=== PATIENT | male | born 1965 | race Caucasian/White ===

== ENCOUNTER 2023-02-10 12:52 | Emergency (ER) | payer SELFPAY ==
[2023-02-10] VITALS (8 sets, daily range): BP systolic 120–130; BP diastolic 71–78; PULSE 76–86; RESP 18–24; TEMP 36.7–36.9; O2SAT 97–100
--- NOTE | ~2023-02-10 | CT_ITS ---
EXAMINATION: CTA chest PE protocol DATE: 02/10/2023 16:54 INDICATION: PE TECHNIQUE: Computed tomography angiography (CTA) of the chest was performed with 100 mL Omnipaque-350 intravenous contrast timed to evaluate the pulmonary arteries. Coronal maximum intensity projection 3D-reconstructions were created by the technologist. The dose-length product (DLP) was 459.67 mGy-cm. Automated exposure control and iterative reconstruction technique were employed. COMPARISON: X-ray chest, same date. FINDINGS: Lung parenchyma and airways: Centrilobular emphysematous change. Left basilar scar. Granulomatous kiana cifications. Pleura: Minimal pleural thickening and pleural calcification at the left lung base, as can be seen wi th asbestos related pleural disease or old trauma. Thoracic inlet, axillae and chest wall: Unremarkable. Thoracic aorta: Normal. Mediastinum: Normal. Heart and pericardium: Normal. Coronary artery calcifications: Absent. Upper abdomen: No significant finding. Bones: No acute osseous finding. Pulmonary arteries: Study quality: Adequate. No pulmonary emboli detected. IMPRESSION: No CT evidence of acute pulmonary embolus. No acute thoracic process detected. Reviewed, dictated and finalized at location K.
--- NOTE | ~2023-02-10 | XR_ITS ---
EXAMINATION: XR chest 2V Exam Date/Time: 02/10/2023 15:15 CDT HISTORY: cough, short of breath x 1 week Comparison: None. RESULT: Lines, tubes, and devices: None. Lungs and pleura: Hemidiaphragm flattening. Increased AP diameter. Calcified pleural plaque. Cardiomediastinal silhouette: Stable. Other: No acute osseous or upper abdominal finding. IMPRESSION: Mild emphysematous change. Calcified pleural plaque as can be seen with asbestos related pleural dise ase. Reviewed, dictated and finalized at location K. IMPRESSION: Mild emphysematous change. Calcified pleural plaque as can be seen with asbesto s related pleural disease.
--- NOTE | 2023-02-10 13:10 | ECG_ITS ---
Measurements Intervals [place] Rate: 73 P: 82 [place]: 150 QRS: 71 QRSD: 87 T: 57 QT: 382 QTc: 423 Interpretive Statements SINUS RHYTHM NORMAL ECG NO PREVIOUS ECG AVAILABLE FOR COMPARISON Electronically Signed On 02-10-2023 13:28:38 CDT by Daniel Ray D.O.
--- NOTE | 2023-02-10 15:13 | ED.SOB ---
HPI - SOB/Dyspnea General Chief Complaint: Shortness of Breath/Dyspnea Stated Complaint: cough/sob Time Seen by Provider: 02/10/23 15:08 History of Present Illness HPI Narrative: Patient is a 57-year-old male here with history of COPD here with cough and shortness of breath. Patient states that at the end of last month he was diagnosed with COVID. He states at that time he had loss of taste and smell as well as a cough and shortness of breath. This seemed to resolve after about 5 days. He notes that it began again this week. He notes myalgias, headache, cough which is productive in nature of yellow green sputum. He notes he once again has had loss of sense of taste and smell as well as a decreased appetite. He denies any fever chills. He does note that he has been using his inhaler at home with mild improvement of his shortness of breath. No prior history of PE or DVT, no recent travel, no recent surgeries. he has had some associated chest pain which is throughout the entire chest and nonradiating. Related Data Allergies Allergy/AdvReac Type Severity Reaction Status Date / Time No Known Allergies Allergy Verified 02/10/23 15:16 Review of Systems Review of Systems: CONSTITUTIONAL: Denies fever, chills, or sweats. EYES: Denies visual changes, redness, or discharge. ENT: Denies rhinorrhea, congestion, sore throat, or otalgia. CARDIOVASCULAR: chest pain, no palpitations, or edema. RESPIRATORY: cough, dyspnea. GASTROINTESTINAL: Denies abdominal pain, nausea, vomiting, or diarrhea. GENITOURINARY: Denies dysuria or hematuria. SKIN: Denies rash or itching. MUSCULOSKELETAL: Myalgias, Denies back pain, joint pain NEUROLOGIC: Denies headache, numbness, or weakness. Exam Narrative: GENERAL: Well-appearing, well-nourished, and in no acute distress. HEAD: Normocephalic, atraumatic. EYES: PERRLA and EOMI. ENT: Nares clear. Mucous membranes moist. NECK: Supple. CHEST: Diffuse wheeze bilaterally. No respiratory distress. HEART: Regular rate and rhythm. Normal peripheral pulses. ABDOMEN: Soft, nontender, nondistended. EXTREMITIES: Normal range of motion. No edema. SKIN: Warm, dry, no rash. NEURO: No focal deficits. Alert and oriented x3. PSYCH: Normal mood and affect. Course Course Emergency Course: Chart review performed, patient here with shortness of breath and cough. Triage vitals within normal limits. No prior visits here in our system. Patient seen evaluated, here with what sounds like recurrent viral syndrome symptoms. He did recently have COVID, will retest. Cardiac workup ordered. Triage workup did perform a chest x-ray which did now show a large infiltrate. Given recent COVID and shortness of breath will do a PE study because he is at higher risk for coagulopathy. Lab work and imaging reviewed, CBC grossly unremarkable, CMP unremarkable, normal BNP, normal troponin pain has been present for a several days constantly, do not believe repeat troponin is indicated. COVID, influenza, RSV all negative. Patient provided and instructed on how to use a spacer with his inhaler. He notes he has an inhaler at home. Will give him dose of prednisone here and start him on a prednisone course as well as an Augmentin course for bacterial COPD exacerbation. The results of pertinent diagnostic studies and exam findings were discussed. The patient?s provisional diagnosis and plan of care were discussed with the patient and present family. The patient and/or present family expressed understanding of the diagnosis and plan. The nurse was instructed to provide written instructions and appropriate follow-up information. The patient understands their need and responsibility to obtain additional follow-up as instructed. The risks of medications administered and prescribed were discussed with the patient and family present. Vital Signs Vital signs: Vital Signs Temperature 98.5 F 02/10/23 13:05 Pulse Rate
[2023-02-10 16:09] LABS: Basophils Absolute Auto 0.1 K/mm3 (0.0-0.1); Basophils Percent Auto 0.8 % (0.2-1.2); Eosinophils Absolute Auto 0.1 K/mm3 (0-0.3); Eosinophils Percent Auto 1.4 % (0-4.4); Hematocrit 41.3 % (42.0-52.0); Hemoglobin 13.6 g/dL (14.0-18.0); Immature Granulocyte Absolute 0.02 K/mm3 (0.00-0.031); Immature Granulocyte Percent A 0.2 % (0-0.5); Lymphocytes Absolute Auto 2.63 K/mm3 (0.9-3.2); Mean Corpuscular HGB Conc 32.9 g/dl (32-36); Mean Corpuscular Hemoglobin 30.6 pg (26-34); Mean Platelet Volume 9.6 fl (7.4-10.4); Monocytes Absolute Auto 0.7 K/mm3 (0.1-0.6); Monocytes Percent Auto 7.6 % (2.6-8.5); Neutrophils Absolute Auto 5.5 K/mm3 (1.3-6.7); Platelet Count Result 208 k/mm3 (150-375); Red Blood Count 4.44 M/mm3 (4.6-6.20); Red Cell Distribution Width 12.8 % (11.5-14.5); White Blood Count 9.1 K/mm3 (4.5-10.0)
[2023-02-10] MEDS: IPRATROPIUM BR 0.02% INH SOLN 0.5 MG/2.5 ML VIAL INHALATION (16:16)
[2023-02-10] MEDS: ALBUTEROL SULFATE NEB 2.5 MG/3 ML INH INHALATION (16:16)
[2023-02-10] MEDS: AMOXICILLIN/CLAVULANATE K 875-125 MG TAB 1 TABLET PO (16:19)
[2023-02-10 16:28] LABS: Alanine Aminotransferase 19 U/L (6-50); Albumin Level 4.1 g/dL (3.5-5.1); Alkaline Phosphatase 67 U/L (38-126); Anion Gap 5 mmol/L (8-16); Aspartate Amino Transferase 30 U/L (17-59); Bilirubin,Total 0.4 mg/dL (0.2-1.3); Blood Urea Nitrogen 10 mg/dL (9-20); Calcium 8.8 mg/dL (8.4-10.2); Carbon Dioxide 27 mmol/L (22-30); Chloride 104 mmol/L (98-107); Estimated CRCL calculation 76 ml/min; Estimated Glomerular Filt Rate > 60; Glucose 125 mg/dL (65-110); Potassium 3.7 mmol/L (3.4-5.0); Sodium 136 mmol/L (137-145)
[2023-02-10 16:38] LABS: NT Pro B Type Natriuretic Pept 50 pg/mL (19.9-100); Troponin I < 0.012 ng/mL (0.000-0.034)
[2023-02-10 17:13] LABS: Influenza A QL RT-PCR Negative (Negative); Influenza B QL RT-PCR Negative (Negative); RSV RNA, RT-PCR Negative (Negative); SARS-CoV-2 RNA PCR Negative (Negative)
[2023-02-10] MEDS: predniSONE 20 MG TABLET 40 MG PO (18:38)
== END 2023-02-10 18:45 | disposition home or self-care (01) ==
PROVIDERS: Emergency Provider Student in an Organized Health Care Education/Training Program
DX: J44.9 Chronic obstructive pulmonary disease, unspecified (principal)
CPT/HCPCS: 36415; 71046; 71275; 80053; 83880; 84484; 85025; 87637; 93005; 94640; 99284; A9270; J7512; Q9967

== ENCOUNTER 2024-02-19 11:33 | Emergency (ER) | payer SELFPAY ==
[2024-02-19] VITALS (11 sets, daily range): BP systolic 120–154; BP diastolic 71–88; PULSE 66–94; RESP 14–24; TEMP 36.4; O2SAT 98–100
--- NOTE | ~2024-02-19 | XR_ITS ---
Clinical Indication: Chest pain PA and lateral views of the chest: Comparison: 02/10/2023 Findings: The lungs are clear, without evidence of focal consolidation or pleural effusion. COPD daniella maribell noted. Cardiomediastinal silhouette is within normal limits. Bones and soft tissues are unremarka ble. Impression: Clear lungs. COPD. Reviewed, dictated and finalized at location . Impression: Clear lungs. COPD.
--- NOTE | 2024-02-19 11:34 | ECG_ITS ---
Test Date: 2024-02-19 11:39:40 Measurements Intervals [place] Rate: 75 P: -19 [place]: 144 QRS: -11 QRSD: 85 T: 9 QT: 383 QTc: 430 Interpretive Statements SINUS RHYTHM MODERATE VOLTAGE CRITERIA FOR LVH, CONSIDER NORMAL VARIANT [MEETS CRITERIA IN ONE OF: R(aVL), S(V1), R(V5), R(V5/V6)+S(V1)] NONSPECIFIC T-WAVE ABNORMALITY ABNORMAL ECG No previous ECG available for comparison Electronically Signed On 02-19-2024 14:06:37 CDT by Cristian Lundberg M.D.
[2024-02-19 12:00] LABS: Basophils Absolute Auto 0.1 K/mm3 (0.0-0.1); Basophils Percent Auto 0.7 % (0.2-1.2); Eosinophils Absolute Auto 0.1 K/mm3 (0-0.3); Eosinophils Percent Auto 1.4 % (0-4.4); Hematocrit 44.1 % (42.0-52.0); Hemoglobin 14.9 g/dL (14.0-18.0); Immature Granulocyte Absolute 0.02 K/mm3 (0.00-0.031); Immature Granulocyte Percent A 0.3 % (0-0.5); Lymphocytes Absolute Auto 2.22 K/mm3 (0.9-3.2); Lymphocytes Percent Auto 30.6 % (18.3-44.2); Mean Corpuscular HGB Conc 33.8 g/dl (32-36); Mean Corpuscular Hemoglobin 31.6 pg (26-34); Mean Corpuscular Volume 93.4 fl (80-100); Mean Platelet Volume 9.4 fl (7.4-10.4); Monocytes Absolute Auto 0.6 K/mm3 (0.1-0.6); Monocytes Percent Auto 7.9 % (2.6-8.5); Neutrophils Absolute Auto 4.3 K/mm3 (1.3-6.7); Neutrophils Percent Auto 59.1 % (45.5-73.1); Platelet Count Result 240 k/mm3 (150-375); Red Blood Count 4.72 M/mm3 (4.6-6.20); Red Cell Distribution Width 13.4 % (11.5-14.5); White Blood Count 7.3 K/mm3 (4.5-10.0)
[2024-02-19] MEDS: ASPIRIN 81 MG CHEWABLE TABLET 324 MG PO (12:00)
[2024-02-19 12:09] LABS: Alanine Aminotransferase 26 U/L (6-50); Albumin Level 4.7 g/dL (3.5-5.1); Alkaline Phosphatase 74 U/L (38-126); Anion Gap 9 mmol/L (4-12); Aspartate Amino Transferase 34 U/L (17-59); Bilirubin,Total 0.5 mg/dL (0.2-1.3); Blood Urea Nitrogen 15 mg/dL (9-20); Calcium 9.1 mg/dL (8.4-10.2); Carbon Dioxide 25 mmol/L (22-30); Chloride 103 mmol/L (98-107); Estimated CRCL calculation 83 ml/min; Estimated Glomerular Filt Rate > 60; Glucose 92 mg/dL (65-110); Lipase 103 U/L (23-300); Potassium 3.9 mmol/L (3.4-5.0); Sodium 137 mmol/L (137-145)
[2024-02-19 12:11] LABS: Partial Thromboplastin Time 28.3 Seconds (22.3-36.8); Prothrombin Time 13.8 Seconds (11.1-14.7)
[2024-02-19 12:21] LABS: Troponin I < 0.012 ng/mL (0.000-0.034)
[2024-02-19] MEDS: dexAMETHasone SOD PHOS INJ 10 MG/ML 1 ML VIAL IV PUSH (14:13)
--- NOTE | 2024-02-19 14:13 | ECG_ITS ---
Test Date: 2024-02-19 14:46:43 Measurements Intervals [place] Rate: 60 P: 76 [place]: 139 QRS: 68 QRSD: 86 T: -2 QT: 416 QTc: 417 Interpretive Statements SINUS RHYTHM NONSPECIFIC T-WAVE ABNORMALITY Compared to ECG 02/19/2024 11:39:40 No significant changes Electronically Signed On 02-19-2024 16:58:45 CDT by Aaron Stafford M.D.
[2024-02-19] MEDS: SODIUM CHLORIDE 0.9% IV 1,000 ML 999 ML IV CONT (14:14)
[2024-02-19] MEDS: IPRATROPIUM 0.5 MG/ALBUTEROL SULFATE 2.5 MG AMPUL.NEB 3 ML 12 ML INHALATION (14:18)
[2024-02-19 14:50] LABS: Troponin I < 0.012 ng/mL (0.000-0.034)
--- NOTE | 2024-02-19 16:19 | ED.GENADULT ---
HPI - General Adult General Chief complaint: Chest Pain Stated complaint: chest pain, sob Time Seen by Provider: 02/19/24 12:44 History of Present Illness HPI narrative: This is a 58-year-old male with COPD who is currently smoking presenting for difficulty breathing. He started having worsening wheezing last night. He took his albuterol inhaler with minimal relief. Denies fevers chills or productive cough. He denies nausea vomiting diarrhea. No chest pain or lower extremity edema. Related Data Allergies Allergy/AdvReac Type Severity Reaction Status Date / Time No Known Allergies Allergy Verified 02/19/24 11:33 Exam Narrative: APPEARANCE: No apparent distress. Head: atraumatic. EYES: EOMI, NOSE: Atraumatic NECK: Trachea midline RESPIRATORY: Slightly tachypneic, wheezing in all rosas common CARDIOVASCULAR: RRR, ABDOMINAL: Non-distended MUSCULOSKELETAl: No obvious deformities NEURO: Alert. Moving 4/4 extremities SKIN:: Warm, dry. Normal color PSYCHIATRIC: Normal affect Course Vital Signs Vital signs: Vital Signs Temperature 97.6 F 02/19/24 11:38 Pulse Rate 88 02/19/24 11:38 Respiratory Rate 16 02/19/24 11:38 Blood Pressure 154/88 H 02/19/24 11:38 Pulse Oximetry 99 02/19/24 11:38 Oxygen Delivery Room Air 02/19/24 11:38 Temperature 97.6 F 02/19/24 11:55 Pulse Rate 87 02/19/24 15:53 Respiratory Rate 20 02/19/24 15:53 Blood Pressure 145/72 H 02/19/24 15:53 Pulse Oximetry 98 02/19/24 15:53 Oxygen Delivery Room Air 02/19/24 11:55 Medical Decision Making [facility] Narrative Medical decision making narrative: -Course: 58-year-old male COPD presenting with wheezing. Given hour long breathing treatment and dexamethasone. Patient noticed some improvement but still wheezing. After admission and the patient declined. He has breathing treatments at home and is comfortable going home with course of antibiotics and steroids. Patient discharged with return precautions. -DDX includes but is not limited to: COPD pneumonia CHF -Co-morbidities complicating care: COPD, current smoker -Independent interpretation of studies: Labs reviewed Chest x-ray clear Independent EKG interpretation: Rhythm [sinus], Rate [60], [place] -[normal], MS -[normal], QRS [narrow], QTC [normal], T waves -[negative for concerning inversions], ST Segments - [Negative for concerning elevations] Final interpretations: [Normal Sinus Rhythm] -Interventions: DuoNeb treatments, dexamethasone, normal saline -Shared decision making / Disposition: Discharge -RX prednisone, Bactrim Vital Signs Vital Signs: Vital Signs Temperature 97.6 F 02/19/24 11:38 Pulse Rate 88 02/19/24 11:38 Respiratory Rate 16 02/19/24 11:38 Blood Pressure 154/88 H 02/19/24 11:38 Pulse Oximetry 99 02/19/24 11:38 Oxygen Delivery Room Air 02/19/24 11:38 Temperature 97.6 F 02/19/24 11:55 Pulse Rate 87 02/19/24 15:53 Respiratory Rate 20 02/19/24 15:53 Blood Pressure 145/72 H 02/19/24 15:53 Pulse Oximetry 98 02/19/24 15:53 Oxygen Delivery Room Air 02/19/24 11:55 Lab Data 02/19/24 11:54 02/19/24 11:54 Labs: Lab Results 02/19/24 02/19/24 Range/Units 11:54 14:19 WBC 7.3 (4.5-10.0) K/mm3 RBC 4.72 (4.6-6.20) M/mm3 Hgb 14.9 (14.0-18.0) g/dL Hct 44.1 (42.0-52.0) % MCV 93.4 (80-100) fl MCH 31.6 (26-34) pg MCHC 33.8 (32-36) g/dl RDW 13.4 (11.5-14.5) % Plt Count 240 (150-375) k/mm3 MPV 9.4 (7.4-10.4) fl Immature Gran % (Auto) 0.3 (0-0.5) % Neut % (Auto) 59.1 (45.5-73.1) % Lymph % (Auto) 30.6 (18.3-44.2) % [place] % (Auto) 7.9 (2.6-8.5) % Eos % (Auto) 1.4 (0-4.4) % Baso % (Auto) 0.7 (0.2-1.2) % Lymph # (Auto) 2.22 (0.9-3.2) K/mm3 [place] # (Auto) 0.6 (0.1-0.6) K/mm3 Eos # (Auto) 0.1 (0-0.3) K/mm3 Baso # (Auto) 0.1 (0.0-0.1) K/mm3 Abs Immat Gran (auto) 0.02 (0.00-0.031) K/mm3 Abs
== END 2024-02-19 16:47 | disposition home or self-care (01) ==
PROVIDERS: Emergency Provider Emergency Medicine
DX: J44.9 Chronic obstructive pulmonary disease, unspecified (principal); F17.200 Nicotine dependence, unspecified, uncomplicated; R94.31 Abnormal electrocardiogram [ECG] [EKG]
CPT/HCPCS: 36415; 71046; 80053; 83690; 84484; 85025; 85610; 85730; 93005; 94640; 96361; 96374; 99284; A9270; J1100; J7030

== ENCOUNTER 2024-04-22 05:42 | Emergency (ER) | payer MEDICAID, SELFPAY ==
[2024-04-22] VITALS (15 sets, daily range): BP systolic 103–167; BP diastolic 65–93; PULSE 69–107; RESP 13–20; TEMP 36.4; O2SAT 93–100
--- NOTE | ~2024-04-22 | XR_ITS ---
Portable chest x-ray Comparison: 02/19/2024 Clinical History: Chest pain Findings: There is linear left basilar scarring or atelectasis. Lungs are otherwise clear. Cardiome diastinal silhouette is stable. Bones and soft tissues are unremarkable. Impression: Linear left basilar scarring or atelectasis, otherwise clear lungs. Reviewed, dictated and finalized at [facility]. 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
--- NOTE | 2024-04-22 05:45 | ECG_ITS ---
Test Date: 2024-04-22 05:53:37 Measurements Intervals [place] Rate: 91 P: 78 [place]: 145 QRS: 61 QRSD: 90 T: 53 QT: 370 QTc: 456 Interpretive Statements SINUS RHYTHM NONSPECIFIC ST & T-WAVE ABNORMALITY ABNORMAL ECG Compared to ECG 02/19/2024 14:46:43 No significant changes Electronically Signed On 04-22-2024 10:58:09 WELDING OPERATOR by Cristian Lundberg M.D.
[2024-04-22] MEDS: ASPIRIN 81 MG CHEWABLE TABLET 324 MG PO (05:56)
--- NOTE | 2024-04-22 06:06 | ED_ITS ---
HPI - General Adult General Chief complaint: Chest Pain <Donta Kang MD - Last Filed: 04/22/24 06:07> Stated complaint: chest pain <Donta Kang MD - Last Filed: 04/22/24 06:07> Time Seen by Provider: 04/22/24 05:57 <Donta Kang MD - Last Filed: 04/22/24 06:07> History of Present Illness HPI narrative: Patient is a 58-year-old gentleman presents emergency department with chief complaint of chest pain. Patient reports that he was sitting at the table but hour prior to arrival reports that he had an episode of nausea and vomited twice the patient states after he vomited he started having discomfort in his chest patient states the pain is both a pressure and sharp sensation patient reports no prior cardiac history but does report that he has history of COPD and hypertension. <Donta Kang MD - Last Filed: 04/22/24 06:07> Related Data Allergies/adverse reactions: Allergies Allergy/AdvReac Type Severity Reaction Status Date / Time No Known Allergies Allergy Verified 04/22/24 05:43 <Donta Kang MD - Last Filed: 04/22/24 06:07> Review of Systems Review of Systems: A 10 system review of systems was completed on the patient and is negative except for what is stated in the HPI. Nursing and ancillary documentation was reviewed. <Donta Kang MD - Last Filed: 04/22/24 06:07> Exam Narrative: GENERAL: Well-appearing, well-nourished, and in no acute distress. HEAD: Normocephalic, atraumatic. EYES: PERRLA and EOMI. ENT: Nares clear, no rhinorrhea or epistaxis. Mucous membranes moist. NECK: Supple. CHEST: Clear to auscultation. No respiratory distress. HEART: Regular rate and rhythm. No murmur heard. Normal peripheral pulses. ABDOMEN: Soft, nontender, nondistended, normal active bowel sounds. EXTREMITIES: Normal range of motion. No edema. SKIN: Warm, dry, no rash. NEURO: No focal deficits. Alert and oriented x3. PSYCH: Normal mood and affect. <Donta Kang MD - Last Filed: 04/22/24 06:07> Course Reevaluation(s) Reevaluation #1: Patient care was signed out to me by the overnight physician with the delta troponin pending. Patient was afebrile with no leukocytosis with hemoglobin of 14.1, no acute abnormalities on the CMP and patient had negative serial troponins. Chest x-ray basilar scarring versus atelectasis. Patient was updated results of his workup patient was encouraged close follow-up with primary care physician for additional outpatient cardiac testing. All questions concerns were addressed. <Jose Ramon Cardona MD - Last Filed: 04/22/24 18:23> Vital Signs Vital signs: Vital Signs Pulse Rate 102 H 04/22/24 05:49 Temperature 97.5 F L 04/22/24 06:35 Pulse Rate 69 04/22/24 09:59 Respiratory Rate 13 04/22/24 09:59 Blood Pressure 129/79 04/22/24 09:59 Pulse Oximetry 97 04/22/24 09:59 Oxygen Delivery Room Air 04/22/24 05:51 <Donta Kang MD - Last Filed: 04/22/24 06:07> Vital Signs Pulse Rate 102 H 04/22/24 05:49 Temperature 97.5 F L 04/22/24 06:35 Pulse Rate 69 04/22/24 09:59 Respiratory Rate 13 04/22/24 09:59 Blood Pressure 129/79 04/22/24 09:59 Pulse Oximetry 97 04/22/24 09:59 Oxygen Delivery Room Air 04/22/24 05:51 <Jose Ramon Cardona MD - Last Filed: 04/22/24 18:23> Medical Decision Making MDM Narrative Medical decision making narrative: Differential diagnosis includes ACS, chest wall pain, noncardiac chest pain, atypical chest pain, EKG showed no acute ischemic changes <Donta Kang MD - Last Filed: 04/22/24 06:07> Vital Signs Vital Signs: Vital Signs Pulse Rate 102 H 04/22/24 05:49 Temperature 97.5 F L 04/22/24 06:35 Pulse Rate 69 04/22/24 09:59 Respiratory Rate 13 04/22/24 09:59 Blood Pressure 129/79 04/22/24 09:59 Pulse Oximetry 97 04/22/24 09:59 Oxygen Delivery Room Air 04/22/24 05:51 <Donta Kang MD - Last Filed: 04/22/24 06:07> Vital Signs Pulse Rate 102 H 04/22/24 05:49 Temperature 97.5 F L 04/22/24 06:35 Pulse Rate 69 04/22/24 09:59 Respiratory Rate 13 04/22/24 09:59 Blood Pressure 129/79 04/22/24 09:59 Pulse Oximetry 97 04/22/24 09:59 Oxygen Delivery Room Air 04/22/24 05:51 <Jose Ramon Cardona MD - Last Filed: 04/22/24 18:23> Lab Data Result diagrams: 04/22/24 06:01 04/22/24 06:01 <Donta Kang MD - Last Filed: 04/22/24 06:07> Labs: Lab Results 04/22/24 04/22/24 Range/Units 06:01 09:00 WBC 8.1 (4.5-10.0) K/mm3 RBC 4.56 L (4.6-6.20) M/mm3 Hgb 14.1 (14.0-18.0) g/dL Hct 42.1 (42.0-52.0) % MCV 92.3 (80-100) fl MCH 30.9 (26-34) pg MCHC 33.5 (32-36) g/dl RDW 13.1 (11.5-14.5) % Plt Count 228 (150-375) k/mm3 MPV 9.3 (7.4-10.4) fl Immature Gran % (Auto) 0.2 (0-0.5) % Neut % (Auto) 60.8 (45.5-73.1) % Lymph % (Auto) 27.8 (18.3-44.2) % [place] % (Auto) 8.3 (2.6-8.5) % Eos % (Auto) 2.0 (0-4.4) % Baso % (Auto) 0.9 (0.2-1.2) % Lymph # (Auto) 2.25 (0.9-3.2) K/mm3 [place] # (Auto) 0.7 H (0.1-0.6) K/mm3 Eos # (Auto) 0.2 (0-0.3) K/mm3 Baso # (Auto) 0.1 (0.0-0.1) K/mm3 Abs Immat Gran (auto) 0.02 (0.00-0.031) K/mm3 Absolute Neuts (auto) 4.9 (1.3-6.7) K/mm3 Absolute Nucleated RBC 0.000 (0.0-0.012) K/mm3 Nucleated RBC % 0.0 (0.0-0.2) % PT 13.8 (11.1-14.7) Seconds INR 1.0 APTT 28.7 (22.3-36.8) Seconds Sodium 135 L (137-145) mmol/L Potassium 3.6 (3.4-5.0) mmol/L Chloride 104 (98-107) mmol/L Carbon Dioxide 26 (22-30) mmol/L Anion Gap 5 (4-12) mmol/L BUN 16 (9-20) mg/dL Creatinine 1.10 (0.7-1.3) mg/dL Estim Creat Clear Calc 64 ml/min Estimated GFR > 60 (59 - ) Glucose 124 H (65-110) mg/dL Calcium 9.0 (8.4-10.2) mg/dL Total Bilirubin 0.6 (0.2-1.3) mg/dL AST 49 (17-59) U/L ALT 38 (6-50) U/L Alkaline Phosphatase 75 (38-126) U/L Troponin I < 0.012 < 0.012 (0.000-0.034) ng/mL Total Protein 7.0 (6.3-8.2) g/dL Albumin 4.4 (3.5-5.1) g/dL Lipase 61 (23-300) U/L <Donta Kang MD - Last Filed: 04/22/24 06:07> Lab Results 04/22/24 04/22/24 Range/Units 06:01 09:00 WBC 8.1 (4.5-10.0) K/mm3 RBC 4.56 L (4.6-6.20) M/mm3 Hgb 14.1 (14.0-18.0) g/dL Hct 42.1 (42.0-52.0) % MCV 92.3 (80-100) fl MCH 30.9 (26-34) pg MCHC 33.5 (32-36) g/dl RDW 13.1 (11.5-14.5) % Plt Count 228 (150-375) k/mm3 MPV 9.3 (7.4-10.4) fl Immature Gran % (Auto) 0.2 (0-0.5) % Neut % (Auto) 60.8 (45.5-73.1) % Lymph % (Auto) 27.8 (18.3-44.2) % [place] % (Auto) 8.3 (2.6-8.5) % Eos % (Auto) 2.0 (0-4.4) % Baso % (Auto) 0.9 (0.2-1.2) % Lymph # (Auto) 2.25 (0.9-3.2) K/mm3 [place] # (Auto) 0.7 H (0.1-0.6) K/mm3 Eos # (Auto) 0.2 (0-0.3) K/mm3 Baso # (Auto) 0.1 (0.0-0.1) K/mm3 Abs Immat Gran (auto) 0.02 (0.00-0.031) K/mm3 Absolute Neuts (auto) 4.9 (1.3-6.7) K/mm3 Absolute Nucleated RBC 0.000 (0.0-0.012) K/mm3 Nucleated RBC % 0.0 (0.0-0.2) % PT 13.8 (11.1-14.7) Seconds INR 1.0 APTT 28.7 (22.3-36.8) Seconds Sodium 135 L (137-145) mmol/L Potassium 3.6 (3.4-5.0) mmol/L Chloride 104 (98-107) mmol/L Carbon Dioxide 26 (22-30) mmol/L Anion Gap 5 (4-12) mmol/L BUN 16 (9-20) mg/dL Creatinine 1.10 (0.7-1.3) mg/dL Estim Creat Clear Calc 64 ml/min Estimated GFR > 60 (59 - ) Glucose 124 H (65-110) mg/dL Calcium 9.0 (8.4-10.2) mg/dL Total Bilirubin 0.6 (0.2-1.3) mg/dL AST 49 (17-59) U/L ALT 38 (6-50) U/L Alkaline Phosphatase 75 (38-126) U/L Troponin I < 0.012 < 0.012 (0.000-0.034) ng/mL Total Protein 7.0 (6.3-8.2) g/dL Albumin 4.4 (3.5-5.1) g/dL Lipase 61 (23-300) U/L <Jose Ramon Cardona MD - Last Filed: 04/22/24 18:23> Discharge Plan Discharge Clinical Impression: Chest pain <Donta Kang MD - Last Filed: 04/22/24 06:07> Patient Disposition: Home, Self-Care <Donta Kang MD - Last Filed: 04/22/24 06:07> Condition: Stable <Donta Kang MD - Last Filed: 04/22/24 06:07> Instructions: Antibiotic Form, Chest Pain (ED) <Donta Kang MD - Last Filed: 04/22/24 06:07> Additional Instructions: Have close follow-up with your primary care physician for additional outpatient cardiac testing. If you have any worsening symptoms and please call or return to the emergency department. <Donta Kang MD - Last Filed: 04/22/24 06:07> Prescriptions: No Action amoxicillin-pot clavulanate 875-125 mg tablet 1 tablet PO Q12H 5 Days Qty: 10 0RF prednisone 20 mg tablet 40 mg PO DAILY 4 Days Qty: 8 0RF prednisone 50 mg tablet 50 mg PO DAILY Qty: 5 0RF sulfamethoxazole-trimethoprim 800-160 mg tablet 1 tablet PO Q12H Qty: 14 0RF <Donta Kang MD - Last Filed: 04/22/24 06:07> Follow-up/Referrals: UNKNOWN,DOCTOR [Primary Care Provider] - <Donta Kang MD - Last Filed: 04/22/24 06:07> Quality HEART score for chest pain patients History: slightly suspicious <Jose Ramon Cardona MD - Last Filed: 04/22/24 18:23> ECG: normal <Jose Ramon Cardona MD - Last Filed: 04/22/24 18:23> Age: > 45 and < 65 years <Jose Ramon Cardona MD - Last Filed: 04/22/24 18:23> Risk factors: no risk factors known <Jose Ramon Cardona MD - Last Filed: 04/22/24 18:23> Troponin: < or = to 1x normal limit <Jose Ramon Cardona MD - Last Filed: 04/22/24 18:23> Heart score: 1 <Jose Ramon Cardona MD - Last Filed: 04/22/24 18:23>
[2024-04-22] MEDS: MORPHINE SULFATE (*CRX) 4 MG/ML INJ IV PUSH (06:09)
[2024-04-22] MEDS: NITROGLYCERIN SL 0.4 MG TABLET SUBLINGUAL (06:11)
--- NOTE | 2024-04-22 06:11 | PC.NURSE ---
0611: Patients CP: 10/27, BP: 167/93, P: 94 SR, SPO2: 96% RA, and RR: 15. First nitro sublingual given. 0616: Patients CP: 11/26, BP: 118/65, P: 109 sinus tach, SPO2: 96% RA, and RR: 17. No more nitro given
[2024-04-22 06:24] LABS: Basophils Absolute Auto 0.1 K/mm3 (0.0-0.1); Basophils Percent Auto 0.9 % (0.2-1.2); Eosinophils Absolute Auto 0.2 K/mm3 (0-0.3); Hematocrit 42.1 % (42.0-52.0); Hemoglobin 14.1 g/dL (14.0-18.0); Immature Granulocyte Absolute 0.02 K/mm3 (0.00-0.031); Immature Granulocyte Percent A 0.2 % (0-0.5); Lymphocytes Absolute Auto 2.25 K/mm3 (0.9-3.2); Lymphocytes Percent Auto 27.8 % (18.3-44.2); Mean Corpuscular HGB Conc 33.5 g/dl (32-36); Mean Corpuscular Hemoglobin 30.9 pg (26-34); Mean Corpuscular Volume 92.3 fl (80-100); Mean Platelet Volume 9.3 fl (7.4-10.4); Monocytes Absolute Auto 0.7 K/mm3 (0.1-0.6); Monocytes Percent Auto 8.3 % (2.6-8.5); Neutrophils Absolute Auto 4.9 K/mm3 (1.3-6.7); Neutrophils Percent Auto 60.8 % (45.5-73.1); Platelet Count Result 228 k/mm3 (150-375); Red Blood Count 4.56 M/mm3 (4.6-6.20); Red Cell Distribution Width 13.1 % (11.5-14.5); White Blood Count 8.1 K/mm3 (4.5-10.0)
[2024-04-22 06:38] LABS: Alanine Aminotransferase 38 U/L (6-50); Albumin Level 4.4 g/dL (3.5-5.1); Alkaline Phosphatase 75 U/L (38-126); Anion Gap 5 mmol/L (4-12); Aspartate Amino Transferase 49 U/L (17-59); Bilirubin,Total 0.6 mg/dL (0.2-1.3); Blood Urea Nitrogen 16 mg/dL (9-20); Carbon Dioxide 26 mmol/L (22-30); Chloride 104 mmol/L (98-107); Estimated CRCL calculation 64 ml/min; Estimated Glomerular Filt Rate > 60; Glucose 124 mg/dL (65-110); Lipase 61 U/L (23-300); Potassium 3.6 mmol/L (3.4-5.0); Sodium 135 mmol/L (137-145)
[2024-04-22 06:39] LABS: Prothrombin Time 13.8 Seconds (11.1-14.7)
[2024-04-22 06:40] LABS: Partial Thromboplastin Time 28.7 Seconds (22.3-36.8)
[2024-04-22 06:50] LABS: Troponin I < 0.012 ng/mL (0.000-0.034)
--- NOTE | 2024-04-22 08:50 | ECG_ITS ---
Test Date: 2024-04-22 08:53:57 Measurements Intervals [place] Rate: 75 P: 80 [place]: 142 QRS: 59 QRSD: 90 T: 53 QT: 372 QTc: 417 Interpretive Statements SINUS RHYTHM POSSIBLE RIGHT VENTRICULAR CONDUCTION DELAY [RSR (QR) IN V1/V2] NONSPECIFIC T-WAVE ABNORMALITY ABNORMAL ECG Compared to ECG 04/22/2024 05:53:37 No significant changes Electronically Signed On 04-22-2024 11:00:02 LINSEED CAKE TRIMMER by Cristian Lundberg M.D.
[2024-04-22 09:30] LABS: Troponin I < 0.012 ng/mL (0.000-0.034)
== END 2024-04-22 10:01 | disposition home or self-care (01) ==
PROVIDERS: Emergency Provider Emergency Medicine
DX: R07.9 Chest pain, unspecified (principal); J44.9 Chronic obstructive pulmonary disease, unspecified; I10 Essential (primary) hypertension; R94.31 Abnormal electrocardiogram [ECG] [EKG]
CPT/HCPCS: 36415; 71045; 80053; 83690; 84484; 85025; 85610; 85730; 93005; 96365; 99284; A9270; J2270

== ENCOUNTER 2024-11-15 13:11 | Emergency (ER) | payer OTHER, SELFPAY ==
[2024-11-15 13:34] VITALS: TEMP 36.9
--- NOTE | 2024-11-15 14:25 | ED_ITS ---
HPI - General Adult General Chief complaint: Back Pain/Injury Stated complaint: right lower back pain, no injury Time Seen by Provider: 11/15/24 13:25 History of Present Illness HPI narrative: This is a 59-year-old male presenting with right lower back pain. Is a sharp pain in the right paralumbar muscles. Is worse with movement and walking. He was better when he stands still. He does not remember precipitating injury. He does not have any weakness to his leg or pain radiating down his leg. No urinary retention or bowel incontinence. No saddle anesthesia. No fevers or we sent weight loss. No trauma. Related Data Allergies Allergy/AdvReac Type Severity Reaction Status Date / Time No Known Allergies Allergy Verified 04/22/24 05:43 Exam Narrative: APPEARANCE: No apparent distress. Head: atraumatic. EYES: EOMI, NOSE: Atraumatic NECK/back: No midline spinal tenderness. Patient has a lidocaine patch over his right lower back. There is tenderness in the paralumbar muscles and they are tense to the touch. Pain is reproducible with palpation and with movement. RESPIRATORY: No increased rate of breathing, scattered expiratory wheezing CARDIOVASCULAR: RRR, ABDOMINAL: Non-distended MUSCULOSKELETAl: No obvious deformities, NEURO: Alert. Cranial nerves 2-12 grossly intact. Sensation light touch, motor function cerebellar function intact for 4 extremities. Gait exam was normal. SKIN:: Warm, dry. Normal color PSYCHIATRIC: Normal affect Medical Decision Making MDM Narrative Medical decision making narrative: -Course: 59-year-old male presenting with right-sided back pain. Pain is reproducible with movement. He has tenderness and tightness over the right paralumbar muscles. No red flags. Patient treated with NSAIDs and muscle relaxers. He will be discharged with similar treatment. Primary care follow- up. Patient has COPD and has some wheezing on exam. He is comfortable doing his breathing treatments at home. -DDX includes but is not limited to: Lower back strain, muscle spasm, sciatica, AAA, kidney stone, cauda equina Discharge Plan Discharge Clinical Impression: Strain of lumbar region Patient Disposition: Home Condition: Stable Instructions: Antibiotic Form, Acute Low Back Pain (ED) Additional Instructions: He was seen emergency department for back pain. Please follow-up with your primary care physician in 3-5 days. Use the medications prescribed as directed. If you develop any weakness your lower extremities, inability to urinate bowel incontinence please return to the ED for re-evaluation. Patient Language: Maltese Prescriptions: New ibuprofen 800 mg tablet 800 mg PO TID PRN (Reason: pain) 7 Days Qty: 21 0RF acetaminophen 500 mg tablet 1,000 mg PO TID PRN (Reason: kj) 7 Days Qty: 42 0RF methocarbamol 750 mg tablet 1,500 mg PO TID Qty: 42 0RF lidocaine 5 % adhesive patch,medicated 1 patch topical DAILY Qty: 15 0RF Rx Instructions: leave on most painful area for up to 12 hrs No Action amoxicillin-pot clavulanate 875-125 mg tablet 1 tablet PO Q12H 5 Days Qty: 10 0RF prednisone 20 mg tablet 40 mg PO DAILY 4 Days Qty: 8 0RF prednisone 50 mg tablet 50 mg PO DAILY Qty: 5 0RF sulfamethoxazole-trimethoprim 800-160 mg tablet 1 tablet PO Q12H Qty: 14 0RF Follow-up/Referrals: Marlon,GUERLINE Melara [Primary Care Provider] -
[2024-11-15] MEDS: diazePAM INJ (*CRX) 10 MG/2 ML SYRINGE 5 MG IM (15:07)
[2024-11-15] MEDS: KETOROLAC 30 MG/ML VIAL (*BKC) IM (15:07)
[2024-11-15] MEDS: ACETAMINOPHEN 500 MG TABLET 1000 MG PO (15:08)
== END 2024-11-15 15:14 | disposition home or self-care (01) ==
PROVIDERS: Emergency Provider Emergency Medicine; PCP Physician Assistant Medical
DX: S39.012A Strain of muscle, fascia and tendon of lower back, initial encounter (principal); X58.XXXA Exposure to other specified factors, initial encounter; J44.9 Chronic obstructive pulmonary disease, unspecified
CPT/HCPCS: 96372; 99284; A9270; J1885; J3360

== ENCOUNTER 2025-02-11 18:38 | Emergency (ER) | payer OTHER, SELFPAY ==
[2025-02-11] VITALS (10 sets, daily range): BP systolic 93–111; BP diastolic 57–85; PULSE 87–109; RESP 17–21; TEMP 36.3; O2SAT 96–100
--- NOTE | ~2025-02-11 | CT_ITS ---
EXAMINATION: CTA chest PE protocol DATE: 02/11/2025 22:01 CDT INDICATION: Left-sided chest pain TECHNIQUE: Computed tomographic angiography (CTA) of the chest was performed with 100 mL Omnipaque-350 intravenous contrast. The dose-length product was 476.87 mGy-cm. Maximum intensity projection 3D-reconstructions of the aorta and other arteries were constructed by the technologist on a separate workstation. COMPARISON: CT dated 02/10/2023. FINDINGS: Heart size normal. Study is technically adequate without evidence for pulmonary embolism. No significant pleural or pericardial effusion. No thoracic lymphadenopathy. Upper abdomen is unremarkable. There is emphysema. No focal consolidation. IMPRESSION: 1. No acute cardiopulmonary disease. No evidence for pulmonary embolism. Reviewed, dictated and finalized at location O.
--- NOTE | ~2025-02-11 | XR_ITS ---
XR chest 2V 02/11/2025 19:01 Indication: Chest pain Procedure: 2 view chest Comparison: 04/22/2024 Findings: There is bibasilar infiltrates which may represent atelectasis or developing pneumonia. The lungs are hyperinflated which is consistent with, but not diagnostic of chronic obstructive pulmonary disease. No significant effusion, edema or pneumothorax. Impression: 1: Bibasilar infiltrates may represent atelectasis and/or developing pneumonia. Reviewed, dictated and finalized at location O. Impression: 1: Bibasilar infiltrates may represent atelectasis and/or developing pneumonia.
--- NOTE | 2025-02-11 18:41 | ECG_ITS ---
Test Date: 2025-02-11 18:43:49 Measurements Intervals [place] Rate: 109 P: 97 [place]: 138 QRS: 68 QRSD: 88 T: 71 QT: 374 QTc: 504 Interpretive Statements SINUS TACHYCARDIA WITH OCCASIONAL SUPRAVENTRICULAR PREMATURE COMPLEXES POSSIBLE LEFT ATRIAL ENLARGEMENT [-0.1mV P-WAVE IN V1/V2] NONSPECIFIC ST & T-WAVE ABNORMALITY ABNORMAL RHYTHM ECG Compared to ECG 04/22/2024 08:53:57 Sinus rhythm no longer present T-wave abnormality still present Electronically Signed On 02-11-2025 19:06:53 CDT by Freida Elizabeth M.D.
--- OUTSIDE RECORDS SUMMARY | 2025-02-11 18:41 | XMS_ITS | Clinical Summary ---
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 Role Phone Unavailable Primary Care Provider Unavailabl e Encounters Date Type Department Care Team Description 01/26/2025 External Device Data [facility] ABSTRACTION Provider, Abstract from Last 3 Months Social History Tobacco Use Types Packs/Day Years Used Date Smoking Tobacco: Never Assessed Sex and Gender Information Value Date Recorded Sex Assigned at Not on file Legal Sex Male 9:27 AM CDT Gender Identity Not on file Sexual Orientation Not on file Plan of Treatment Health Maintenance Due Date Last Done Comments Pre-Diabetes and Diabetes Screening 1965 DTAP/TDAP/TD VACCINES (1 - Tdap) 08/26/1986 HEPATITIS B VACCINES (1 of 3 - 19+ 3-dose series) 01/1987 COLORECTAL SCREENING 08/26/2012 Colorectal Cancer Screening 08/26/2012 FIT-DNA Q 3 years 08/26/2012 FIT/FOBT Q 1 year 08/26/2012 Flex Sig/CT Colonography Q 5 years 08/26/2012 ZOSTER VACCINE (1 of 2) 08/26/2017 INFLUENZA VACCINE (#1) 2024 Insurance [employer]
[2025-02-11 18:57] LABS: Hematocrit 43.4 % (42.0-52.0); Hemoglobin 14.4 g/dL (14.0-18.0); Immature Granulocyte Percent A 0.4 % (0-0.5); Lymphocytes Absolute Auto 3.27 K/mm3 (0.9-3.2); Mean Corpuscular HGB Conc 33.2 g/dl (32-36); Mean Corpuscular Hemoglobin 29.1 pg (26-34); Mean Corpuscular Volume 87.9 fl (80-100); Nucleated Red Blood Cells Absolute Auto 0.000 K/mm3 (0.0-0.012); Nucleated Red Blood Cells Perc 0.0 % (0.0-0.2); Platelet Count Result 288 k/mm3 (150-375); Red Blood Count 4.94 M/mm3 (4.6-6.20); White Blood Count 11.2 K/mm3 (4.5-10.0)
[2025-02-11 19:07] LABS: Alanine Aminotransferase 30 U/L (6-50); Albumin Level 4.4 g/dL (3.5-5.1); Alkaline Phosphatase 80 U/L (38-126); Anion Gap 8 mmol/L (4-12); Aspartate Amino Transferase 34 U/L (17-59); Bilirubin,Total 0.4 mg/dL (0.2-1.3); Blood Urea Nitrogen 16 mg/dL (9-20); Calcium 9.4 mg/dL (8.4-10.2); Carbon Dioxide 22 mmol/L (22-30); Chloride 100 mmol/L (98-107); Estimated CRCL calculation 65 ml/min; Estimated Glomerular Filt Rate > 60; Glucose 131 mg/dL (65-110); Lipase 81 U/L (23-300); Potassium 4.0 mmol/L (3.4-5.0); Sodium 130 mmol/L (137-145); Total Protein 8.1 g/dL (6.3-8.2)
[2025-02-11 19:08] LABS: INR 1.0; Prothrombin Time 13.6 Seconds (11.1-14.7)
[2025-02-11 19:09] LABS: Partial Thromboplastin Time 28.8 Seconds (22.3-36.8)
[2025-02-11 19:19] LABS: Troponin I < 0.012 ng/mL (0.000-0.034)
--- OUTSIDE RECORDS SUMMARY | 2025-02-11 19:42 | XMS_ITS | Clinical Summary ---
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
[2025-02-11] MEDS: ASPIRIN 81 MG CHEWABLE TABLET 324 MG PO (19:59)
[2025-02-11] MEDS: dexAMETHasone SOD PHOS INJ 10 MG/ML 1 ML VIAL IV PUSH (20:00)
[2025-02-11] MEDS: SODIUM CHLORIDE 0.9% IV 1,000 ML 999 ML IV CONT (20:00)
[2025-02-11] MEDS: IPRATROPIUM 0.5 MG/ALBUTEROL SULFATE 2.5 MG AMPUL.NEB 3 ML 12 ML INHALATION (20:08)
[2025-02-11 20:33] LABS: NT Pro B Type Natriuretic Pept < 20 pg/mL (19.9-100); Troponin I < 0.012 ng/mL (0.000-0.034)
[2025-02-11 20:46] LABS: Influenza A QL RT-PCR Negative (Negative); Influenza B QL RT-PCR Negative (Negative); RSV RNA, RT-PCR Negative (Negative); SARS-CoV-2 RNA PCR Negative (Negative)
--- NOTE | 2025-02-11 20:58 | ED_ITS ---
HPI - General Adult General Chief complaint: Chest Pain <Dominick Arrington MD - Last Filed: 02/11/25 21:52> Stated complaint: CHEST PAIN, L ARM NUMBNESS <Dominick Arrington MD - Last Filed: 02/11/25 21:52> Time Seen by Provider: 02/11/25 19:29 <Dominick Arrington MD - Last Filed: 02/11/25 21:52> History of Present Illness HPI narrative: This is a 59 old male history of COPD presenting for chest pain. Yesterday the patient sharp pain left side his chest radiating to his left arm while watching TV. It is moderate intensity. It comes in waves and last for 2- 3 minutes before resolving for several hours. He has never had pain like this before there are no exacerbating relieving factors. Patient is short of breath and has had a productive cough. He denies fevers chills nausea vomiting or diarrhea. Chest pain is not exertional, associated with diaphoresis or vomiting. <Dominick Arrington MD - Last Filed: 02/11/25 21:52> Related Data Allergies/adverse reactions: Allergies Allergy/AdvReac Type Severity Reaction Status Date / Time No Known Allergies Allergy Verified 02/11/25 18:39 <Dominick Arrington MD - Last Filed: 02/11/25 21:52> Exam 2 Narrative: APPEARANCE: No apparent distress. Head: atraumatic. EYES: EOMI, NOSE: Atraumatic NECK: Trachea midline RESPIRATORY: Wheezing in all rosas, scattered crackles CARDIOVASCULAR: Tachycardic, no peripheral edema, ABDOMINAL: Non-distended soft nontender MUSCULOSKELETAl: No obvious deformities NEURO: Alert. Moving 4/4 extremities SKIN:: Warm, dry. Normal color PSYCHIATRIC: Normal affect <Dominick Arrington MD - Last Filed: 02/11/25 21:52> Course Course Emergency Course: Patient care signed over by previous provider pending CT angiography, re- evaluation after nebulization treatments and disposition based on results. Suspect pneumonia based on previous chest x-ray today with history of COPD. He does have a minor white count. Feeling improved after treatments and no longer tachycardic or as wheezy. Saturating 98% presently. Hemodynamically stable. CT angiography shows no pulmonary embolism. No acute overt pulmonary pathology but given his COPD exacerbation and presentation will treat him with antibiotics including Augmentin and doxycycline upon discharge. <Mathew Dick MD - Last Filed: 02/12/25 06:29> Vital Signs Vital signs: Vital Signs Temperature 36.3 C L 02/11/25 18:46 Pulse Rate 109 H 02/11/25 18:46 Respiratory Rate 19 02/11/25 18:46 Blood Pressure 103/64 02/11/25 18:46 Pulse Oximetry 97 02/11/25 18:46 Oxygen Delivery Room Air 02/11/25 18:46 Temperature 36.3 C L 02/11/25 18:46 Pulse Rate 92 02/11/25 23:25 Respiratory Rate 19 02/11/25 23:25 Blood Pressure 104/85 02/11/25 23:25 Pulse Oximetry 96 02/11/25 23:25 Oxygen Delivery Room Air 02/11/25 20:14 <Dominick Arrington MD - Last Filed: 02/11/25 21:52> Vital Signs Temperature 36.3 C L 02/11/25 18:46 Pulse Rate 109 H 02/11/25 18:46 Respiratory Rate 19 02/11/25 18:46 Blood Pressure 103/64 02/11/25 18:46 Pulse Oximetry 97 02/11/25 18:46 Oxygen Delivery Room Air 02/11/25 18:46 Temperature 36.3 C L 02/11/25 18:46 Pulse Rate 92 02/11/25 23:25 Respiratory Rate 19 02/11/25 23:25 Blood Pressure 104/85 02/11/25 23:25 Pulse Oximetry 96 02/11/25 23:25 Oxygen Delivery Room Air 02/11/25 20:14 <Mathew Dick MD - Last Filed: 02/12/25 06:29> Medical Decision Making MDM Narrative Medical decision making narrative: -Course: 59-year-old male with history of COPD and current tobacco use presenting for left-sided pleuritic chest pain. Patient has wheezing in all rosas and is tachycardic. Patient given 1 hour breathing treatment dexamethasone and magnesium. Chest x-ray showed possible early pneumonia. Dimer was elevated and CT PE was ordered. Patient signed out to the oncoming physician pending completion of his workup. -DDX includes but is not limited to: COPD exacerbation, pneumonia, PE, lung cancer, viral syndrome -Co-morbidities complicating care: COPD, current tobacco use <Dominick Arrington MD - Last Filed: 02/11/25 21:52> Vital Signs Vital Signs: Vital Signs Temperature 36.3 C L 02/11/25 18:46 Pulse Rate 109 H 02/11/25 18:46 Respiratory Rate 19 02/11/25 18:46 Blood Pressure 103/64 02/11/25 18:46 Pulse Oximetry 97 02/11/25 18:46 Oxygen Delivery Room Air 02/11/25 18:46 Temperature 36.3 C L 02/11/25 18:46 Pulse Rate 92 02/11/25 23:25 Respiratory Rate 19 02/11/25 23:25 Blood Pressure 104/85 02/11/25 23:25 Pulse Oximetry 96 02/11/25 23:25 Oxygen Delivery Room Air 02/11/25 20:14 <Dominick Arrington MD - Last Filed: 02/11/25 21:52> Vital Signs Temperature 36.3 C L 02/11/25 18:46 Pulse Rate 109 H 02/11/25 18:46 Respiratory Rate 19 02/11/25 18:46 Blood Pressure 103/64 02/11/25 18:46 Pulse Oximetry 97 02/11/25 18:46 Oxygen Delivery Room Air 02/11/25 18:46 Temperature 36.3 C L 02/11/25 18:46 Pulse Rate 92 02/11/25 23:25 Respiratory Rate 19 02/11/25 23:25 Blood Pressure 104/85 02/11/25 23:25 Pulse Oximetry 96 02/11/25 23:25 Oxygen Delivery Room Air 02/11/25 20:14 <Mathew Dick MD - Last Filed: 02/12/25 06:29> Lab Data Result diagrams: 02/11/25 18:52 02/11/25 18:52 <Dominick Arrington MD - Last Filed: 02/11/25 21:52> Labs: Lab Results 02/11/25 02/11/25 02/11/25 Range/Units 18:52 20:04 21:57 WBC 11.2 H (4.5-10.0) K/mm3 RBC 4.94 (4.6-6.20) M/mm3 Hgb 14.4 (14.0-18.0) g/dL Hct 43.4 (42.0-52.0) % MCV 87.9 (80-100) fl MCH 29.1 (26-34) pg MCHC 33.2 (32-36) g/dl RDW 13.4 (11.5-14.5) % Plt Count 288 (150-375) k/mm3 MPV 8.7 (7.4-10.4) fl Immature Gran % (Auto) 0.4 (0-0.5) % Neut % (Auto) 61.4 (45.5-73.1) % Lymph % (Auto) 29.1 (18.3-44.2) % [place] % (Auto) 7.4 (2.6-8.5) % Eos % (Auto) 1.2 (0-4.4) % Baso % (Auto) 0.5 (0.2-1.2) % Lymph # (Auto) 3.27 H (0.9-3.2) K/mm3 [place] # (Auto) 0.8 H (0.1-0.6) K/mm3 Eos # (Auto) 0.1 (0-0.3) K/mm3 Baso # (Auto) 0.1 (0.0-0.1) K/mm3 Abs Immat Gran (auto) 0.05 H (0.00-0.031) K/mm3 Absolute Neuts (auto) 6.9 H (1.3-6.7) K/mm3 Absolute Nucleated RBC 0.000 (0.0-0.012) K/mm3 Nucleated RBC % 0.0 (0.0-0.2) % PT 13.6 (11.1-14.7) Seconds INR 1.0 APTT 28.8 (22.3-36.8) Seconds D-Dimer 0.66 H (<0.48) ug/mL Sodium 130 L (137-145) mmol/L Potassium 4.0 (3.4-5.0) mmol/L Chloride 100 (98-107) mmol/L Carbon Dioxide 22 (22-30) mmol/L Anion Gap 8 (4-12) mmol/L BUN 16 (9-20) mg/dL Creatinine 1.12 (0.7-1.3) mg/dL Estim Creat Clear Calc 65 ml/min Estimated GFR > 60 (59 - ) Glucose 131 H (65-110) mg/dL Calcium 9.4 (8.4-10.2) mg/dL Total Bilirubin 0.4 (0.2-1.3) mg/dL AST 34 (17-59) U/L ALT 30 (6-50) U/L Alkaline Phosphatase 80 (38-126) U/L Troponin I < 0.012 < 0.012 < 0.012 (0.000-0.034) ng/mL NT-Pro-B Natriuret Pep < 20 (19.9-100) pg/mL Total Protein 8.1 (6.3-8.2) g/dL Albumin 4.4 (3.5-5.1) g/dL Lipase 81 (23-300) U/L Influenza A (RT-PCR) Negative (Negative) Influenza B (RT-PCR) Negative (Negative) RSV (RT-PCR) Negative (Negative) SARS-CoV-2 RNA (RT-PCR) Negative (Negative) <Dominick Arrington MD - Last Filed: 02/11/25 21:52> Lab Results 02/11/25 02/11/25 02/11/25 Range/Units 18:52 20:04 21:57 WBC 11.2 H (4.5-10.0) K/mm3 RBC 4.94 (4.6-6.20) M/mm3 Hgb 14.4 (14.0-18.0) g/dL Hct 43.4 (42.0-52.0) % MCV 87.9 (80-100) fl MCH 29.1 (26-34) pg MCHC 33.2 (32-36) g/dl RDW 13.4 (11.5-14.5) % Plt Count 288 (150-375) k/mm3 MPV 8.7 (7.4-10.4) fl Immature Gran % (Auto) 0.4 (0-0.5) % Neut % (Auto) 61.4 (45.5-73.1) % Lymph % (Auto) 29.1 (18.3-44.2) % [place] % (Auto) 7.4 (2.6-8.5) % Eos % (Auto) 1.2 (0-4.4) % Baso % (Auto) 0.5 (0.2-1.2) % Lymph # (Auto) 3.27 H (0.9-3.2) K/mm3 [place] # (Auto) 0.8 H (0.1-0.6) K/mm3 Eos # (Auto) 0.1 (0-0.3) K/mm3 Baso # (Auto) 0.1 (0.0-0.1) K/mm3 Abs Immat Gran (auto) 0.05 H (0.00-0.031) K/mm3 Absolute Neuts (auto) 6.9 H (1.3-6.7) K/mm3 Absolute Nucleated RBC 0.000 (0.0-0.012) K/mm3 Nucleated RBC % 0.0 (0.0-0.2) % PT 13.6 (11.1-14.7) Seconds INR 1.0 APTT 28.8 (22.3-36.8) Seconds D-Dimer 0.66 H (<0.48) ug/mL Sodium 130 L (137-145) mmol/L Potassium 4.0 (3.4-5.0) mmol/L Chloride 100 (98-107) mmol/L Carbon Dioxide 22 (22-30) mmol/L Anion Gap 8 (4-12) mmol/L BUN 16 (9-20) mg/dL Creatinine 1.12 (0.7-1.3) mg/dL Estim Creat Clear Calc 65 ml/min Estimated GFR > 60 (59 - ) Glucose 131 H (65-110) mg/dL Calcium 9.4 (8.4-10.2) mg/dL Total Bilirubin 0.4 (0.2-1.3) mg/dL AST 34 (17-59) U/L ALT 30 (6-50) U/L Alkaline Phosphatase 80 (38-126) U/L Troponin I < 0.012 < 0.012 < 0.012 (0.000-0.034) ng/mL NT-Pro-B Natriuret Pep < 20 (19.9-100) pg/mL Total Protein 8.1 (6.3-8.2) g/dL Albumin 4.4 (3.5-5.1) g/dL Lipase 81 (23-300) U/L Influenza A (RT-PCR) Negative (Negative) Influenza B (RT-PCR) Negative (Negative) RSV (RT-PCR) Negative (Negative) SARS-CoV-2 RNA (RT-PCR) Negative (Negative) <Mathew Dick MD - Last Filed: 02/12/25 06:29> Critical Care Time Critical Care Time Critical Care Time: Yes <Mathew Dick MD - Last Filed: 02/12/25 06:29> Total Critical Care Time: 35 <Mathew Dick MD - Last Filed: 02/12/25 06:29> Discharge Plan Discharge Clinical Impression: Acute exacerbation of chronic obstructive pulmonary disease, Atypical pneumonia <Dominick Arrington MD - Last Filed: 02/11/25 21:52> Patient Disposition: Home <Dominick Arrington MD - Last Filed: 02/11/25 21:52> Condition: Stable <Dominick Arrington MD - Last Filed: 02/11/25 21:52> Instructions: Antibiotic Form <Dominick Arrington MD - Last Filed: 02/11/25 21:52> Additional Instructions: Follow-up with your regular primary care provider. We have treated you for a COPD exacerbation here and your symptoms are consistent with pleurisy and no signs of any cardiac issue or blood clot. We have send you home with 2 different antibiotics to continue taking for treatment of COPD and chest x-ray findings of potential pneumonia. Return with any shortness of breath, chest pain that is recurring or worsening, losing consciousness, fevers, inability to tolerate oral intake or any other issues/emergent concerns. <Dominick Arrington MD - Last Filed: 02/11/25 21:52> Patient Language: Czech <Dominick Arrington MD - Last Filed: 02/11/25 21:52> Prescriptions: New doxycycline hyclate 100 mg capsule 100 mg PO BID 7 Days Qty: 14 0RF amoxicillin-pot clavulanate 875-125 mg tablet 1 tablet PO Q12H 7 Days Qty: 14 0RF No Action amoxicillin-pot clavulanate 875-125 mg tablet 1 tablet PO Q12H 5 Days Qty: 10 0RF prednisone 20 mg tablet 40 mg PO DAILY 4 Days Qty: 8 0RF prednisone 50 mg tablet 50 mg PO DAILY Qty: 5 0RF sulfamethoxazole-trimethoprim 800-160 mg tablet 1 tablet PO Q12H Qty: 14 0RF ibuprofen 800 mg tablet 800 mg PO TID PRN (Reason: pain) 7 Days Qty: 21 0RF acetaminophen 500 mg tablet 1,000 mg PO TID PRN (Reason: kj) 7 Days Qty: 42 0RF methocarbamol 750 mg tablet 1,500 mg PO TID Qty: 42 0RF lidocaine 5 % adhesive patch,medicated 1 patch topical DAILY Qty: 15 0RF Rx Instructions: leave on most painful area for up to 12 hrs <Dominick Arrington MD - Last Filed: 02/11/25 21:52> Follow-up/Referrals: Marlon,GUERLINE Melara [Primary Care Provider, Unknown] <Dominick Arrington MD - Last Filed: 02/11/25 21:52> Time of Disposition: 23:15 <Dominick Arrington MD - Last Filed: 02/11/25 21:52> 23:15 <Mathew Dick MD - Last Filed: 02/12/25 06:29>
[2025-02-11 22:27] LABS: Troponin I < 0.012 ng/mL (0.000-0.034)
--- NOTE | 2025-02-11 23:04 | ECG_ITS ---
Test Date: 2025-02-11 21:56:51 Measurements Intervals [place] Rate: 91 P: 83 [place]: 155 QRS: 71 QRSD: 85 T: 60 QT: 373 QTc: 461 Interpretive Statements SINUS RHYTHM NONSPECIFIC ST SEGMENT ABNORMALITY ABNORMAL ECG Compared to ECG 02/11/2025 18:43:49 NO SIGNIFICANT CHANGE Electronically Signed On 02-12-2025 07:39:39 CDT by Franklyn Davidson M.D.
== END 2025-02-11 23:27 | disposition home or self-care (01) ==
PROVIDERS: Emergency Provider Emergency Medicine; PCP Physician Assistant Medical
DX: J44.0 Chronic obstructive pulmonary disease with (acute) lower respiratory infection (principal); J18.9 Pneumonia, unspecified organism; J44.1 Chronic obstructive pulmonary disease with (acute) exacerbation; Z20.822 Contact with and (suspected) exposure to COVID-19
CPT/HCPCS: 36415; 71046; 71275; 80053; 83690; 83880; 84484; 85025; 85380; 85610; 85730; 87637; 93005; 94640; 96361; 96374; 99284; A9270; J1100; J7030; Q9967